=== PATIENT | male | born 1970 | race Caucasian/White ===

== ENCOUNTER 2016-10-07 02:24 | Emergency (ER) | payer OTHER ==
[2016-10-07 02:32] VITALS: TEMP 98.4
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
--- NOTE | 2016-10-07 04:36 | XR ---
EXAM: XR Right Ribs, 2 Views CLINICAL HISTORY: Reason: Pain TECHNIQUE: Frontal and oblique views of the right ribs. COMPARISON: No relevant prior studies available. FINDINGS: PA chest: Heart size and mediastinal structures are within normal limits. Lungs are clear. No evidence of pneumothorax or pleural effusion. Bones/joints: Nondisplaced fractures involve the lateral right eighth and ninth ribs. No other definite rib fractures identified. IMPRESSION: Acute nondisplaced lateral right eighth and ninth rib fractures.
[2016-10-07 04:45] VITALS: BP 122/60; PULSE 80; RESP 16
== END 2016-10-07 05:02 | disposition home or self-care (01) ==
LOC: EC 02:24
DX: S22.41XA Multiple fractures of ribs, right side, initial encounter for closed fracture (principal); S12.8XXA Fracture of other parts of neck, initial encounter; R04.0 Epistaxis; F17.200 Nicotine dependence, unspecified, uncomplicated; Y09 Assault by unspecified means
CPT/HCPCS: 70450; 70486; 99284

== ENCOUNTER 2017-08-27 18:55 | Emergency (ER) | payer OTHER ==
[2017-08-27] MEDS ORDERED: BACITRACIN 500 UNIT/GM OINT 28.4 GM TUBE TOPICAL ONE (19:27)
[2017-08-27] MEDS ORDERED: DIPH,PERTUS(ACELL)TETVAC-LF 0.5 ML VIAL IM ONE (19:27)
[2017-08-27] MEDS ORDERED: PANTOPRAZOLE 40 MG TABLET PO STA (19:27)
[2017-08-27 19:54] LABS: Basophils % (A) 1 %; Eosinophils # (A) 0.2 k/uL (0-0.7); Eosinophils % (A) 3 %; HGB 15.3 gm/dL (13.0-17.5); Lymphocytes # (A) 2.3 k/uL (1.0-4.8); Lymphocytes % (A) 28 %; MCH 32.5 pg (25.0-35.0); MCHC 34.1 g/dL (31.0-37.0); MCV 95.2 fL (80.0-100.0); Mean Platelet Volume 6.7; Monocytes # (A) 0.6 k/uL (0-1.0); Monocytes % (A) 7 %; Neutrophils % (A) 60 %; Platelet Count 218 k/uL (150-450); RBC 4.72 m/uL (4.30-5.90); RDW 14.2 % (11.5-15.5); WBC 8.3 k/uL (3.8-10.6)
[2017-08-27 19:58] LABS: Alcohol <10 mg/dL; Anion Gap 11 mmol/L; Blood Urea Nitrogen 16 mg/dL (9-20); Calcium 9.4 mg/dL (8.4-10.2); Carbon Dioxide 30 mmol/L (22-30); Chloride 99 mmol/L (98-107); Glucose 110 mg/dL (74-99); Sodium 140 mmol/L (137-145)
--- NOTE | 2017-08-27 21:21 | ED ---
General Adult HPI - General Chief complaint: Psychiatric Symptoms Stated complaint: MENTAL HEALTH ETOH Source: patient, police Mode of arrival: ambulatory Limitations: no limitations - History of Present Illness Initial comments: Dictation was produced using [employer] dictation software. please excuse any grammatical, word or spelling errors. Chief Complaint: 46-year-old male past medical history of hypothyroidism presents with suicidal ideation. History of Present Illness: Patient is accompanied by police. Patient has suicidal ideation. He does report having suicidal attempt in the past. He tried to commit suicide today by cutting his wrist. It cut his left forearm and attempted a however states that he "chickened out." Patient has attempted suicide in the past. History. Patient states she's been depressed because feels as though a ravine a lot of bad life choices. The ROS documented in this emergency department record has been reviewed and confirmed by me. Those systems with pertinent positive or negative responses have been documented in the HPI. All other systems are other negative and/or noncontributory. - Related Data Home Medications Medication Instructions Recorded Confirmed Levothyroxine Sodium [Synthroid] 150 mcg PO DAILY 08/27/17 08/27/17 Vitamin B Complex 1 cap PO DAILY 08/27/17 08/27/17 Allergies Allergy/AdvReac Type Severity Reaction Status Date / Time No Known Allergies Allergy Verified 08/27/17 20:25 Review of Systems ROS Statement: Those systems with pertinent positive or pertinent negative responses have been documented in the HPI. ROS Other: All systems not noted in ROS Statement are negative. Past Medical History Additional Past Medical History / Comment(s): hypothyroidism. Hepatitis C. History of Any Multi-Drug Resistant Organisms: None Reported Additional Past Surgical History / Comment(s): wisdom teeth. Past Psychological History: Depression Smoking Status: Current every day smoker Past Alcohol Use History: Occasional Past Drug Use History: Marijuana General Exam - General Exam Comments Initial Comments: PHYSICAL EXAM: General Impression: Alert and oriented x3, not in acute distress HEENT: Normocephalic atraumatic, extra-ocular movements intact, pupils equal and reactive to light bilaterally, mucous membranes moist. Cardiovascular: Heart regular rate and rhythm, S1&S2 audible, no murmurs, rubs or gallops Chest: Lungs clear to auscultation bilaterally, no rhonchi, no wheeze, no rales Abdomen: Bowel sounds present, abdomen soft, non-tender, non-distended, no organomegaly Musculoskeletal: Pulses present and equal in all extremities, no peripheral edema Motor: Power 5/5 bilaterally, no focal deficits noted Neurological: CN II-XII grossly intact, no focal motor or sensory deficits noted Skin: Multiple superficial lacerations to the left anterior forearm. Wound edges approximate well. Active hemorrhage at this time. Psych: Normal affect and mood Limitations: no limitations Course Vital Signs 08/27/17 08/27/17 18:59 20:07 Temperature 97.8 F Pulse Rate 84 Respiratory 18 19 Rate Blood Pressure 134/93 O2 Sat by Pulse 100 Oximetry Medical Decision Making - Medical Decision Making ED course: Sux-rrlo-cra male presents with suicidal ideation with attempt today. Vital signs are stable. Patient is depressed secondary to personal life issues. Patient is accompanied by law enforcement. There is a warrant out for his arrest. Laboratory evaluation obtained showing no acute processes. Tetanus was updated. Patient given bacitracin and wound was dressed. Her dictation for laceration repair at this time. Patient medically cleared. Patient evaluated by EPS nurse and cleared for discharge to enforcement.. The time of this dictation there is pending custody to enforcement. EKG Interpretation: A 12 lead EKG was obtained. It was interpreted by myself and attending physician. There is a P wave before every QRS complex. Rate is 74. Rhythm is sinus rhythm, interval 162, QRS 82, QTC 424. QT is not prolonged. No ST segment depression or elevation. Overall, this EKG is unremarkable - Lab Data Result diagrams: 08/27/17 19:41 08/27/17 19:41 Lab Results 08/27/17 08/27/17 Range/Units 19:41 19:41 WBC 8.3 (3.8-10.6) k/uL RBC 4.72 (4.30-5.90) m/uL Hgb 15.3 (13.0-17.5) gm/dL Hct 45.0 (39.0-53.0) % MCV 95.2 (80.0-100.0) fL MCH 32.5 (25.0-35.0) pg MCHC 34.1 (31.0-37.0) g/dL RDW 14.2 (11.5-15.5) % Plt Count 218 (150-450) k/uL Neutrophils % 60 % Lymphocytes % 28 % Monocytes % 7 % Eosinophils % 3 % Basophils % 1 % Neutrophils # 5.0 (1.3-7.7) k/uL Lymphocytes # 2.3 (1.0-4.8) k/uL Monocytes # 0.6 (0-1.0) k/uL Eosinophils # 0.2 (0-0.7) k/uL Basophils # 0.0 (0-0.2) k/uL Sodium 140 (137-145) mmol/L Potassium 4.0 (3.5-5.1) mmol/L Chloride 99 (98-107) mmol/L Carbon Dioxide 30 (22-30) mmol/L Anion Gap 11 mmol/L BUN 16 (9-20) mg/dL Creatinine 1.16 (0.66-1.25) mg/dL Est GFR (CKD-EPI)AfAm 88 (>60 ml/min/1.73 sqM) Est GFR (CKD-EPI)NonAf 76 (>60 ml/min/1.73 sqM) Glucose 110 H (74-99) mg/dL Calcium 9.4 (8.4-10.2) mg/dL Serum Alcohol <10 mg/dL Disposition Clinical Impression: Suicide attempt Disposition: OTHER INSTITUTION NOT DEFINED Instructions: Depression (ED) Is patient prescribed a controlled substance at d/c from ED?: No Referrals: Nuria Lockhart DO [Primary Care Provider] - 1-2 days Time of Disposition: 21:20 - Out of Hospital Transfer - Req. Specs Out of Hospital Transfer - Requested Specifics: Other Non-Acute (to custody of law enforcement)
[2017-08-27 21:29] VITALS: BP 144/87; PULSE 88; RESP 18; TEMP 97
== END 2017-08-27 21:29 | disposition other institution (70) ==
LOC: EC 18:55
DX: S51.812A Laceration without foreign body of left forearm, initial encounter (principal); F32.9 Major depressive disorder, single episode, unspecified; E03.9 Hypothyroidism, unspecified; F17.200 Nicotine dependence, unspecified, uncomplicated; Z23 Encounter for immunization; Z86.19 Personal history of other infectious and parasitic diseases; Z79.899 Other long term (current) drug therapy; X78.9XXA Intentional self-harm by unspecified sharp object, initial encounter
CPT/HCPCS: 36415; 80048; 80320; 82075; 85025; 90471; 90715; 93005; 99285

== ENCOUNTER → 2018-07-19 | Outpatient (CLI) | payer OTHER ==
--- NOTE | 2018-07-19 14:30 | CT ---
EXAMINATION TYPE: CT chest wo con DATE OF EXAM: 07/19/2018 COMPARISON: CT chest September 18, 2010 HISTORY: Chronic productive cough x [address] DLP: 675 mGycm. Automated Exposure Control for Dose Reduction was Utilized. TECHNIQUE: CT scan of the thorax is performed without IV contrast. FINDINGS: LUNGS: An azygos lobe/fissure is redemonstrated. The lungs are grossly clear, there is no concerning parenchymal mass or nodule identified. There is no pleural effusion or pneumothorax seen. The trac heobronchial tree is patent. MEDIASTINUM: Lack of IV contrast is noted to limit evaluation for mediastinal and especially hilar ad enopathy. There are no definitive greater than 1 cm hilar or mediastinal lymph nodes. No cardiomega ly or pericardial effusion is seen. No coronary artery calcification is noted. OTHER: No additional significant abnormality is seen. IMPRESSION: No acute or chronic pulmonary process identified.
== END | disposition home or self-care (01) ==
LOC: RADCTMAIN 13:31
PROVIDERS: ATTEND Family Medicine
DX: R05 Cough (principal)
CPT/HCPCS: 71250

== ENCOUNTER → 2019-03-31 | Outpatient (CLI) | payer OTHER ==
[2019-03-31 18:34] LABS: Albumin 4.3 g/dL (3.80-4.90); Albumin/Globulin Ratio 1.79 (1.60-3.17); Bilirubin, Conjugated 0.3 mg/dL (0.20-0.40); Bilirubin,Unconjugated 0.5 mg/dL; Globulin 2.4 g/dL (1.6-3.3); Total Bilirubin 0.8 mg/dL (0.2-1.2); Total Protein 6.7 g/dL (6.2-8.2)
== END | disposition home or self-care (01) ==
LOC: LABWHC1 11:32
PROVIDERS: ATTEND Psychiatry & Neurology Psychiatry
DX: B18.2 Chronic viral hepatitis C (principal); Z79.899 Other long term (current) drug therapy
CPT/HCPCS: 36415; 80076; 86803

== ENCOUNTER → 2019-04-20 | Outpatient (CLI) | payer OTHER | END | disposition home or self-care (01) | LOC: LABWHC1 09:24 | PROVIDERS: ATTEND Physician Assistant | DX: B18.2 Chronic viral hepatitis C (principal) | CPT/HCPCS: 36415 ==

== ENCOUNTER → 2019-05-10 | Outpatient (CLI) | payer OTHER ==
--- NOTE | 2019-05-10 11:03 | NM ---
EXAMINATION TYPE: NM stress cardiolite complete DATE OF EXAM: 05/10/2019 COMPARISON: NONE HISTORY: Family history of cardiac disease, chest pain TECHNIQUE: After the intravenous administration of 10.83 mCi Tc 99m Sestamibi - Rest images obtained 45 minutes post injection. The patient exercised using a MIKHAIL protocol and 1 minute prior to peak exercise was injected with 27.6 mCi Tc 99m Sestamibi - Stress images obtained 35 minutes post inject ion. FINDINGS: Targeted heart rate was achieved during performance of the study. Review of stress and rest SPECT jenifer ges demonstrates no convincing perfusion abnormality. Small perfusion defect on stress imaging of the septal wall is seen although this is not in one coronary artery distribution and is seen of the basi lar segment, possibly artifact with normal wall motion. Gated analysis shows normal wall motion with an estimated left ventricular ejection fraction of 52 %. TID is within normal limits measuring 0.95. IMPRESSION: 1. No convincing scintigraphic evidence for reversible ischemia. Small defect in the septal wall on stress imaging is favored to be artifactual as wall motion is normal. 2. Estimated ventricular ejection fraction of 52%.
--- NOTE | 2019-05-10 18:07 | EST ---
EXERCISE STRESS AGE: 48 SEX: Male. HT: 73" WT: 220 pounds PROTOCOL: Cardiolite Carmelo STAGE: 3 DURATION OF EXERCISE: 10:30 HEART RATE REST: 68 BLOOD PRESSURE REST: 106/82 MAXIMUM HEART RATE ACHIEVED: 152 MAXIMUM BLOOD PRESSURE: 153/85 85% MPHR: 146 100% MPHR: 172 METS: 12.1 INDICATIONS: Chest pain. CLINICAL INFORMATION: STRESS DATA: Heart rate 68, pressure 106/32 mmHg. Baseline EKG showed sinus rhythm. The patient exercised on the treadmill according to Carmelo protocol for a total of 10 minutes and achieved 12.1 METS. Max heart rate was 152, which is about 90% of maximum predicted heart rate. Maximum blood pressure was 153/85 mmHg. Clinically the patient developed dizziness and lightheadedness. The EKG did not show any significant ST or T- wave abnormalities concerning for ischemia. CONCLUSION: 1. Excellent exercise tolerance. 2. Normal EKG in response to exercise. 3. Please follow up on the Cardiolite portion on separate report from Radiology Department. MMODL / IJN: [id number] /
== END | disposition home or self-care (01) ==
LOC: RADNMMAIN 08:03
PROVIDERS: ATTEND Family Medicine
DX: Q21.8 Other congenital malformations of cardiac septa (principal); I25.10 Atherosclerotic heart disease of native coronary artery without angina pectoris; Z82.49 Family history of ischemic heart disease and other diseases of the circulatory system
CPT/HCPCS: 93017; 78452; A9500

== ENCOUNTER → 2019-09-01 | Outpatient (CLI) | payer OTHER ==
[2019-09-01 09:09] LABS: Basophils # (A) 0.1 k/uL (0-0.2); Basophils % (A) 1 %; Eosinophils # (A) 0.3 k/uL (0-0.7); Eosinophils % (A) 4 %; HCT 47.5 % (39.0-53.0); HGB 15.6 gm/dL (13.0-17.5); Lymphocytes # (A) 2.4 k/uL (1.0-4.8); Lymphocytes % (A) 29 %; MCH 31.2 pg (25.0-35.0); MCHC 32.8 g/dL (31.0-37.0); MCV 95.3 fL (80.0-100.0); Mean Platelet Volume 7.8; Monocytes # (A) 0.5 k/uL (0-1.0); Monocytes % (A) 6 %; Neutrophils # (A) 4.7 k/uL (1.3-7.7); Neutrophils % (A) 58 %; Platelet Count 198 k/uL (150-450); RBC 4.99 m/uL (4.30-5.90); RDW 13.4 % (11.5-15.5); WBC 8.1 k/uL (3.8-10.6)
[2019-09-01 15:39] LABS: ALT 21 U/L (10-49); AST 25 U/L (14-35); Albumin/Globulin Ratio 1.62 (1.60-3.17); Alkaline Phosphatase 54 U/L (41-126); Bilirubin, Conjugated <0.20 mg/dL (0.20-0.40); Globulin 2.6 g/dL (1.6-3.3); Total Bilirubin 0.5 mg/dL (0.3-1.2); Total Protein 6.8 g/dL (6.2-8.2)
[2019-09-01 15:52] LABS: INR 0.94 (0.90-1.11); Prothrombin Time 10.1 sec (9.9-11.9)
== END | disposition home or self-care (01) ==
LOC: LABWHC1 08:31
PROVIDERS: ATTEND Physician Assistant
DX: B18.2 Chronic viral hepatitis C (principal)
CPT/HCPCS: 36415; 80076; 85025; 85610; 87522

== ENCOUNTER → 2024-02-14 | Outpatient (CLI) | payer OTHER ==
[2024-02-14 14:00] VITALS: BP 130/87; PULSE 73; RESP 20; TEMP 97.5
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
== END ==
LOC: 3 N SLEEP 13:19
PROVIDERS: ATTEND Internal Medicine
DX: G47.33 Obstructive sleep apnea (adult) (pediatric) (principal); G47.10 Hypersomnia, unspecified; M19.90 Unspecified osteoarthritis, unspecified site; F32.A Depression, unspecified; K21.9 Gastro-esophageal reflux disease without esophagitis; B19.20 Unspecified viral hepatitis C without hepatic coma; F17.200 Nicotine dependence, unspecified, uncomplicated; Z98.890 Other specified postprocedural states; Z87.828 Personal history of other (healed) physical injury and trauma
CPT/HCPCS: 99211

== ENCOUNTER → 2024-02-25 | Outpatient (CLI) | payer OTHER ==
[2024-02-25 15:42] LABS: Blood Urea Nitrogen 15.6 mg/dL (9.0-27.0); Calcium 9.7 mg/dL (8.7-10.3); Carbon Dioxide 28.1 mmol/L (21.6-31.8); Chloride 105 mmol/L (96-109); Glucose 66 mg/dL (70-110); INR 0.98 sec (0.93-1.11); Potassium 4.7 mmol/L (3.5-5.5); Prothrombin Time 11.2 sec (9.9-11.9); Sodium 142 mmol/L (135-145)
[2024-02-25 15:47] LABS: Basophils # (A) 0.03 X 10*3/uL (0.00-0.10); Basophils % (A) 0.5 %; Eosinophils # (A) 0.21 X 10*3/uL (0.04-0.35); Eosinophils % (A) 3.2 %; HGB 14.5 g/dL (13.0-17.0); Lymphocytes # (A) 1.94 X 10*3/uL (0.90-5.00); Lymphocytes % (A) 29.6 %; MCH 30.1 pg (27.0-32.0); MCV 91.3 FL (80.0-97.0); Mean Platelet Volume 10.4 FL (9.5-12.2); Monocytes # (A) 0.78 X 10*3/uL (0.20-1.00); Monocytes % (A) 11.9 %; NRBC Per 100 WBC 0 X 10*3/uL (0.00-0.01); Neutrophils # (A) 3.57 X 10*3/uL (1.80-7.70); Neutrophils % (A) 54.5 %; Platelet Count 235 X 10*3/uL (140-440); RBC 4.82 X 10*6/uL (4.40-5.60); RDW 12.9 % (11.5-14.5); WBC 6.55 X 10*3/uL (4.50-10.00)
== END | disposition home or self-care (01) ==
LOC: LABPAT 11:50
PROVIDERS: ATTEND Orthopaedic Surgery
DX: M16.11 Unilateral primary osteoarthritis, right hip (principal); Z22.322 Carrier or suspected carrier of Methicillin resistant Staphylococcus aureus
CPT/HCPCS: 80048; 85025; 85610; 87070

== ENCOUNTER → 2024-03-16 | Outpatient (CLI) | payer OTHER ==
--- NOTE | 2024-03-16 13:23 | CTL ---
EXAMINATION TYPE: CT Low Dose Lung DATE OF EXAM: 03/16/2024 1:05 PM COMPARISON: 07/19/2018r SCREENING VISIT: Subsequent CT DIAGNOSTIC QUALITY: Satisfactory CLINICAL INDICATION: Male, 53 years old with history of Z12.2 ENCNTR SCREEN FOR MALIGNANT NEOPLASM OF RESP, Personal hx nicotine dependence current smoker, 1 ppd x 20 years. c/o chronic cough., Lung can cer screening, History of tobacco use. TECHNIQUE: Low dose computed tomography scan was performed through the chest at 1 mm thick sections a nd reconstructed images in the coronal plane at 1 mm thick sections. Contrast used: mL of , (none if empty) Oral contrast used: (none if empty) CT DLP: 151.1 mGycm, Automated exposure control for dose reduction was used. CT CTDI: 3.9 mGy, Automated exposure control for dose reduction was used. FINDINGS: LUNG NODULES: None. LUNGS: COPD: Severity: None Fibrosis: Severity: None Lymph nodes: None Other findings: None RIGHT PLEURAL SPACE: Effusion: None Calcification: None Thickening: None Pneumothorax: None LEFT PLEURAL SPACE: Effusion: None Calcification: None Thickening: None Pneumothorax: None HEART: Other: Ascending thoracic aorta at the level the main pulmonary artery measures 4.2 cm. The main pul monary artery at the bifurcation measures3.1 cm. Heart Size: Normal Coronary calcification: Minimal Pericardial effusion: None OTHER FINDINGS: Upper abdomen: Normal Bony thorax: Normal Supraclavicular region: Normal IMPRESSION: 1. No suspicious changes for primary or metastatic neoplasm. 2. Ascending thoracic aortic aneurysm of 4.[address] CHEST RECOMMENDATION: Follow-up low-dose CT chest one year CT LUNG RAD: Lung-Rad 2 Benign Appearance or Behavior [facility], , 03/16/2024 1:21 PM
== END | disposition home or self-care (01) ==
LOC: RADCTMAIN 12:35
PROVIDERS: ATTEND Family Medicine
DX: Z12.2 Encounter for screening for malignant neoplasm of respiratory organs (principal); F17.210 Nicotine dependence, cigarettes, uncomplicated; I71.21 Aneurysm of the ascending aorta, without rupture
CPT/HCPCS: 71271

== ENCOUNTER 2024-03-20 19:43 | Outpatient (CLI) | payer OTHER ==
--- NOTE | 2024-03-22 14:39 | P.PCN ---
Description of Procedure: POLYSOMNOGRAPHY REPORT PROCEDURE(S)/DATE(S): Polysomnography 03/20/2024 CLINICAL: Patient has been seen in the sleep center for evaluation of obstructive sleep apnea-hypopnea syndrome. Please see my consultation. Sleep study has been done for evaluation of patient breathing during the sleep. PROCEDURE: The standard montage for clinical polysomnography included the electroencephalogram, the electrooculogram, the mentalis surface electromyography and Lead II cardiography. The respiratory battery consisted of measurements of nasal/buccal air flow, pressure transducer measurements from nose, thoracic and/or abdominal effort and intercostal surface electromyography. Video monitoring has been done to check for any parasomnia events. Nocturnal oxyhemoglobin saturations were obtained by finger oximetry. Step-salinas titration with positive airway pressure was utilized to control the respiratory events, if necessary. RESULTS: During the diagnostic sleep study sleep efficiency was decreased to 68.0%. Latency to sleep onset was prolonged to 51.0 min. Sleep architecture showed stage NI was increased to 13.1%, Delta sleep was absent 0%, REM sleep was decreased to 10.1%. Respiratory channel showed 1 obstructive apneas, 3 mixed apneas, 2 central apneas, 108 hypopneas with lowest oxygen level 76%. Total apnea hypopnea index was 26.7. Heart rate was in the range between 62 and 72, average 67. EMG showed 0 periodic limb movements per hour. IMPRESSIONS: 1. Moderate obstructive sleep apnea hypopnea syndrome. 2. No significant periodic limb movements have been documented. Please see other impressions from consultation PLAN: 1. The patient will have PAP titration for correction of respiratory abnormalities during the sleep. 2. Losing weight. 3. Sleep hygiene with regular time in bed for at least 7-1/2 hours. 4. No driving if feeling sleepiness. Thank you very much for allowing me to participate in the management of your patient. Sincerely, Grupo Alonzo MD, PhD, FAASM. Diplomat of [place] [employer], Sleep Medicine Board by [place] [employer] Analysis Specialist of [facility] [place] cc: Daksha Keane MD
== END 2024-03-21 08:00 | disposition home or self-care (01) ==
LOC: 3 N SLEEP 19:43
PROVIDERS: ATTEND Internal Medicine
DX: G47.33 Obstructive sleep apnea (adult) (pediatric) (principal); F17.210 Nicotine dependence, cigarettes, uncomplicated
CPT/HCPCS: 95810

== ENCOUNTER → 2024-03-27 | Outpatient (CLI) | payer OTHER | END | disposition home or self-care (01) | LOC: LABPAT 12:23 | PROVIDERS: ATTEND Orthopaedic Surgery | DX: Z01.812 Encounter for preprocedural laboratory examination (principal) | CPT/HCPCS: 86850; 86900; 86901 ==

== ENCOUNTER → 2024-05-03 | Outpatient (CLI) | payer OTHER ==
[2024-05-03 15:01] LABS: Blood Urea Nitrogen 11.8 mg/dL (9.0-27.0); Calcium 9.9 mg/dL (8.7-10.3); Carbon Dioxide 27.8 mmol/L (21.6-31.8); Chloride 104 mmol/L (96-109); Glucose 72 mg/dL (70-110); Potassium 4.7 mmol/L (3.5-5.5); Sodium 140 mmol/L (135-145)
[2024-05-03 15:14] LABS: Basophils # (A) 0.04 X 10*3/uL (0.00-0.10); Basophils % (A) 0.6 %; Eosinophils # (A) 0.21 X 10*3/uL (0.04-0.35); Eosinophils % (A) 3.3 %; HCT 46.4 % (39.6-50.0); HGB 15.3 g/dL (13.0-17.0); Lymphocytes # (A) 2.25 X 10*3/uL (0.90-5.00); Lymphocytes % (A) 35.3 %; MCH 30.1 pg (27.0-32.0); MCV 91.3 FL (80.0-97.0); Mean Platelet Volume 10.6 FL (9.5-12.2); Monocytes # (A) 0.65 X 10*3/uL (0.20-1.00); Monocytes % (A) 10.2 %; NRBC Per 100 WBC 0 X 10*3/uL (0.00-0.01); Neutrophils % (A) 50.3 %; Platelet Count 250 X 10*3/uL (140-440); RBC 5.08 X 10*6/uL (4.40-5.60); RDW 13.2 % (11.5-14.5); WBC 6.37 X 10*3/uL (4.50-10.00)
== END | disposition home or self-care (01) ==
LOC: LABPAT 11:08
PROVIDERS: ATTEND Orthopaedic Surgery
DX: Z01.812 Encounter for preprocedural laboratory examination (principal); M16.11 Unilateral primary osteoarthritis, right hip
CPT/HCPCS: 80048; 85025; 86850; 86900; 86901

== ENCOUNTER 2024-05-08 19:38 | Outpatient (CLI) | payer OTHER ==
--- NOTE | 2024-05-11 12:33 | P.PCN ---
Description of Procedure: CLINICAL: Titration with positive air pressure has been done for correction of respiratory abnormalities during sleep. DESCRIPTION OF PROCEDURE: The standard montage for clinical polysomnography included the electroencephalogram, the electrocardiogram, the mentalis surface electromyography and Lead II cardiography. The respiratory battery consisted of measurements of nasal /buccal air flow, pressure transducer measurements from the nose, thoracic and /or abdominal effort and intercostal surface electromyography. Video monitoring has been done to check for any parasomnia events. Nocturnal oxyhemoglobin saturations were obtained by finger oximetry. Step-salinas titration with positive airway pressure was utilized to control respiratory events. Raw data of sleep recording has been reviewed and is adequate. RESULTS: Sleep efficiency was significantly decreased to 60.9%. Latency to sleep onset was significantly prolonged to 50.0 minutes.]. Sleep architecture showed stage N1 was normal 6.4%, Delta sleep was absent 0%, REM sleep was increased to 32.3%. Heart rate was minimum 49 BPM, maximum 64 BPM, average 57 BPM. EMG showed 18.1 periodic limb movements per hour with 0.3 micriarousals per hour. PAP titration have been done with CPAP up to the pressure 13 cm H2O. The best results were at the pressure 11 cm H2O. Apnea hypopnea index reduced to 7.4. IMPRESSION: 1. Obstructive sleep apnea hypopnea syndrome improved with PAP treatment. 2. Periodic limb movements have been documented. Please see other impressions from consultation. PLAN: 1. The patient will have treatment with positive air pressure equipment with the level of pressure AutoPap 6-15 cm H2O and should use it every night for the whole night. 2. Watching weight. 3. Sleep hygiene with regular time in bed for at least 8 hours. 4. No driving if feeling any sleepiness. 5. I will see the patient for follow up visit to explain the results of the jese t, recommendations, check compliance with treatment and make any necessary adjustment related to mask fitting, pressure and humidification. 6. Please check iron profile including ferritin level. Low level of iron may increase risk for periodic limb movements Thank you very much for allowing me to participate in the management of your patient. Sincerely, Grupo Alonzo MD, PhD, FAASM Diplomat of [place] [employer] Sleep Medicine Board of [place] [employer] Service Delivery Manager of [facility] [place] cc: Calvin Mendosa III, MD
== END 2024-05-09 06:00 | disposition home or self-care (01) ==
LOC: 3 N SLEEP 19:38
PROVIDERS: ATTEND Internal Medicine
DX: G47.33 Obstructive sleep apnea (adult) (pediatric) (principal); G47.61 Periodic limb movement disorder; F17.210 Nicotine dependence, cigarettes, uncomplicated; Z99.89 Dependence on other enabling machines and devices
CPT/HCPCS: 95811

== ENCOUNTER 2024-05-12 06:37 | Day surgery (SDC) | payer OTHER ==
--- NOTE | 2024-05-11 08:22 | P.HPOR ---
History of Present Illness H&P Date: 05/11/24 Chief Complaint: Right hip pain The patient is a 53-year-old male who presents with progressive right hip pain for the past 6 months. He is having pain with any weightbearing activities. He is having nighttime symptoms. He tried medications without much relief. He notes he has been limping. Review of Systems Per HPI Past Medical History Past Medical History: GERD/Reflux, Osteoarthritis (OA), Sleep Apnea/CPAP/BIPAP, Thyroid Disorder Additional Past Medical History / Comment(s): hypothyroidism. Hepatitis C-had treatment & is cured, saw Dr Brown recently regarding thoracic aneurysm-being monitored for now, hx. herpes, hx. syphilus, no active lesions, has hiatal hernia, in recovery for alcohol & drug abuse, gets tested every [address], just had sleep study-doesn't have CPAP yet History of Any Multi-Drug Resistant Organisms: None Reported Past Surgical History: Hernia Repair Additional Past Surgical History / Comment(s): wisdom teeth., jaw surg. due to fx.-has plate & screws, colonoscopy, right cataract removed Past Anesthesia/Blood Transfusion Reactions: No Reported Reaction Additional Past Anesthesia/Blood Transfusion Reaction / Comment(s): no issues opening jaw since surg. Smoking Status: Current every day smoker - Past Family History Mother Family Medical History: Cancer, Hyperlipidemia, Sleep Apnea/CPAP/BIPAP Additional Family Medical History / Comment(s): LUNG CANCER, HIGH TRIGLYERIDES, PART OF LUNG REMOVED, Brother(s) Family Medical History: Asthma, Myocardial Infarction ([place]) Medications and Allergies Home Medications Medication Instructions Recorded Confirmed Type Levothyroxine Sodium [Synthroid] 200 mcg PO DAILY 08/27/17 05/09/24 History Albuterol Inhaler [Ventolin Hfa 1 - 2 puff INHALATION Q6H PRN 03/30/24 05/09/24 History Inhaler] Fluticasone Nasal [place] [Flonase 2 spray EA NOSTRIL DAILY 03/30/24 05/09/24 History Nasal [place]] Losartan [Cozaar] 25 mg PO DAILY 03/30/24 05/09/24 History Omeprazole 40 mg PO DAILY PRN 03/30/24 05/09/24 History Arginine [l-Arginine] 500 mg PO DAILY 03/31/24 05/09/24 History Ascorbic Acid [Vitamin C] 500 mg PO DAILY 03/31/24 05/09/24 History Cholecalciferol [Vitamin D3 (125 125 mcg PO DAILY 03/31/24 05/09/24 History Mcg = 5000 Iu)] Glucosa Nicole 2Kcl/Chondroitin Nicole 1 each PO DAILY 03/31/24 05/09/24 History [Glucosamine-Chondroitin Cap] Ibuprofen [Motrin] 600 mg PO Q6HR PRN 03/31/24 05/09/24 History K2/Mk7 1 tab PO DAILY 03/31/24 05/09/24 History L.acidoph,Paracasei, B.lactis 1 each PO DAILY 03/31/24 05/09/24 History [Probiotic] Ubidecarenone [Co Q-10] 100 mg PO DAILY 03/31/24 05/09/24 History Acyclovir [Zovirax] 800 mg PO BID 05/09/24 05/09/24 History Aspirin 81 mg PO DAILY 05/09/24 05/09/24 History Allergies Allergy/AdvReac Type Severity Reaction Status Date / Time No Known Allergies Allergy Verified 05/09/24 12:39 Physical Examination - Hip right Gait: antalgic Tenderness with palpation: anterior Pain with motion: internal rotation and hip flexion ROM: flexion: 70 degrees ROM: internal rotation: 0 degrees ROM: external rotation: 50 degrees Crepitus with motion: Yes Strength: extension: 5/5 Strength: flexion: 5/5 Strength: abduction: 5/5 Tests: impingement tests: positive Results The patient is a well-developed well-nourished male approximately 6 foot tall, 210 pounds of endomorphic habitus. HEENT exam is nonfocal, neck is supple. He has painful passive motion of the right hip. Straight leg raise is negative. He does have shortening the right lower extremity compared to left. His distal neurovascular exam appears intact in the right lower extremity. - Diagnostic results Hip x-ray: image reviewed (X-rays of the right hip obtained the office show severe osteoarthrosis with subchondral cystic changes and subchondral sclerosis. [id number] changes are noted.) Assessment and Plan Assessment: Right hip severe osteoarthrosis History of alcohol abuse Hepatitis C Plan: I talked to the patient at length regarding his condition along with treatment options. At this point he is quite symptomatic having pain and stiffness related to his right hip osteoarthrosis despite attempted conservative measures. After a thorough discussion he opts to proceed with surgery. We will plan to proceed with a right total hip arthroplasty utilizing an anterior approach. Risks and benefits were discussed at length in layman's terms. We will institute DVT prophylaxis postoperatively.
[~2024-05-12 06:37] MED LIST: LIDOCAINE 1% (10MG/ML) FOR IV START INTRADERMA PRN; TRANEXAMIC 1,000 MG/100ML-NACL 1,000 MG in SALINE 1 100ML.BAG IVPB PRN; fentaNYL (PF) 50 MCG/ML 2 ML AMP IVP PRN
[2024-05-12] MEDS: ACETAMINOPHEN TAB 500 MG TAB PO PRN (07:08)
[2024-05-12] MEDS: MELOXICAM 7.5 MG TAB PO PRN (07:09)
[2024-05-12] MEDS: DEXAMETHASONE SOD PHOSPHATE 4 MG/ML 1 ML VIAL IV ONE (07:21)
[2024-05-12] MEDS: ONDANSETRON 4 MG/2 ML VIAL IVP ONE (07:21)
[2024-05-12] MEDS: LACTATED RINGERS 1,000 ML IV SCH (07:22)
[2024-05-12] MEDS: MIDAZOLAM 2 MG/2 ML VIAL IV PRN (07:25)
[2024-05-12 07:31] LABS: Prothrombin Time 10.8 sec (10.0-12.5)
[2024-05-12] MEDS: IV FLUID CONTINUATION 1,000 ML IV ONE (07:36)
[2024-05-12] MEDS ORDERED: DEXAMETHASONE SOD PHOSPHATE 4 MG/ML 1 ML VIAL ONE (08:45)
[2024-05-12] MEDS ORDERED: ROPIVACAINE 5 MG/ML 30 ML VIAL ONE (08:45)
[2024-05-12] MEDS ORDERED: MIDAZOLAM 2 MG/2 ML VIAL ONE (08:45)
[2024-05-12] MEDS ORDERED: PROPOFOL 10 MG/ML 20 ML VIAL IV ONE (08:45)
[2024-05-12] MEDS ORDERED: TRANEXAMIC 1,000 MG/100ML-NACL PREMIX BAG ONE (08:45)
[2024-05-12] MEDS: ceFAZolin 1,000 MG in SODIUM CHLORIDE 0.9% 1,000 ML IRRIGATION ONE (09:20)
[2024-05-12] MEDS: LACTATED RINGERS 1,000 ML IV ONE (09:48)
--- NOTE | 2024-05-12 10:47 | P.OP ---
Date of Procedure: 05/12/24 Preoperative Diagnosis: Right hip severe osteoarthrosis Postoperative Diagnosis: Same Procedure(s) Performed: Right total hip arthroplastyanterior approachpress-fit Implants: DePuy Corail size 12-135 degree standard offset collared femoral stem, 58 mm [place] acetabular shell with neutral polyethylene liner, 36+1.5 cobalt chrome femoral head. Anesthesia: spinal Surgeon: Aleksandar Kirkland Chemical Processing Technician #1: River Gomez Estimated Blood Loss (ml): 150 Pathology: none sent Condition: stable Disposition: PACU Indications for Procedure: The patient is a 53-year-old male who presents with progressive right hip pain secondary to osteoarthrosis despite conservative measures. A discussion of the risks and benefits of operative intervention versus continued conservative measures was made with the patient. He opted to proceed with surgery. Operative risks include infection, neurovascular injury, development of blood clots, fracture, possible instability, possible leg length discrepancy, possible component loosening/failure and possible need for subsequent procedures was discussed. Informed consent was obtained. Operative Findings: As below Description of Procedure: The patient was brought to the operating room, and after induction of spinal anesthesia was placed supine on the Jo-Ann table. Positioning was checked with fluoroscopy. The right hip was then prepped and draped in a normal fashion. A 12 cm incision was then made starting 2 fingerbreadths distal and 3 finger breaths posterior to the ASIS in line with the proximal femur. The skin was incised sharply. Subcutaneous tissues were divided sharply. Electrocautery was used for hemostasis. The fascia was split in line with skin incision. The interval between the sartorius and tensor fascia delmer was then bluntly developed. The posterior fascia was opened with electrocautery. The lateral circumflex vessels were identified and cauterized prior to sectioning. A retractor was placed along the superior femoral neck as well as the anterior acetabular rim. A wide capsulotomy was performed. The neck cut was then made at a 45 angle to the shaft approximately 1 1/2 cm above the level of the lesser trochanter. The head was extracted. Attention was then paid towards preparing the acetabular. Anterior and posterior retractors were placed. The remaining capsular labral tissue sharply debrided clearly defining the acetabular margins. I began reaming with a 53 mm reamer taking care to initially medialize then reaming at 45 of abduction and 20 of anteversion. Sequential reaming is performed up to 57 mm. A trial 58 mm acetabular shell was inserted in the same orientation and was fully seated. There was good rim fit and stability. Positioning was checked with fluoroscopy. The final 58 mm acetabular shell was inserted again at 45 of abduction and 20 of anteversion. This was fully seated. There was good rim fit and stability. Again fluoroscopy was used to check the adequacy of placement. A neutral polyethylene liner was gently impacted. Care was taken to avoid any soft tissue interposition. Pulsatile lavage was utilized. Attention was then paid towards preparing the proximal femur. The central region was cleared of soft tissue. A canal finder was used to find the femoral canal. Sequential broaching was performed up to size 12 taking care to lateralize proximally. A calcar mill was used to fashion the medial calcar. There was good rotational stability. A standard neck along with a 36 mm +1.5 head was placed. The hip was gently reduced. Fluoroscopy was used to check the adequacy of positioning along with leg lengths. I felt both were good. The hip was gently dislocated. The trial components were removed. The final size 12 collared standard press-fit femoral stem was inserted parallel to the posterior cortex. This was fully seated and there was good rotational stability. A 36 mm +1.5 cobalt chrome femoral head was placed. This was gently impacted. The hip was then gently reduced. Final fluoroscopic view showed adequate placement implant along with religion of leg length. Stability was checked with 80 of external rotation and 60 of extension of the right hip. The wound was irrigated with sterile lavage. The fascia was closed with running 0 Vicryl suture. There was minimal drainage therefore a deep drain was not placed. The second dose of IV TXA was given. The subcutaneous tissues were reapproximated interrupted 2-0 Vicryl sutures. The skin was reapproximated with 3-0 subcuticular strata fix suture. Skin ta pe and adhesive was applied. A sterile dressing was applied. The patient was then awoken from sedation and transferred to recovery room in good condition. Blood loss was estimated at 150 mL. No complications were incurred. Sponge and needle counts were correct at the end of the case. River HOLLOWAY assisted during the major components is case to include exposure, bone resection, implantation, and closure.
--- NOTE | 2024-05-12 10:49 | XR ---
EXAMINATION TYPE: XR Hip Limited RT, FL guidance operating room DATE OF EXAM: 05/12/2024 10:25 AM COMPARISON: None. CLINICAL INDICATION: Male, 53 years old with history of RIGHT ANTERIOR HIP, Postoperative evaluation TECHNIQUE: XR Hip Limited RT, FL guidance operating room views were obtained FINDINGS: Noted are changes of total hip arthroplasty with femoral and acetabular components appearing well sea mima. Alignment is anatomic. Postsurgical soft tissue changes are evident. IMPRESSION: Satisfactory postoperative alignment [facility], , 05/12/2024 10:47 AM
[2024-05-12] MEDS ORDERED: HYDROcodone/APAP 5-325MG 1 EACH TAB PO PRN (10:52)
[2024-05-12] MEDS ORDERED: NALOXONE 0.4 MG/ML 1 ML VIAL IV PRN (10:52)
[2024-05-12] MEDS: HYDROmorphone 0.5 MG/0.5 ML SYRINGE IVP PRN ×2 (11:01→17:38)
--- NOTE | 2024-05-12 11:22 | XR ---
EXAMINATION TYPE: XR Hip Limited RT DATE OF EXAM: 05/12/2024 11:16 AM COMPARISON: None. CLINICAL INDICATION: Male, 53 years old with history of s/p RTHA, Postoperative evaluation TECHNIQUE: XR Hip Limited RT views were obtained FINDINGS: Noted are changes of total hip arthroplasty with femoral and acetabular components appearing well sea mima. Alignment is anatomic. Postsurgical soft tissue changes are evident. IMPRESSION: Satisfactory postoperative alignment [facility], , 05/12/2024 11:19 AM
--- NOTE | 2024-05-12 20:21 | P.CONS ---
History of Present Illness - Reason for Consult Consult date: 05/12/24 Medical management - History of Present Illness The patient is a 53-year-old male with a history of hypertension, hypothyroidism, thoracic aortic aneursym, who presented for an elective right hip arthroplasty with Dr. Kirkland. Hospitalist service consulted for medical management.He underwent an uneventful surgery this afternoon, and was evaluated afterwards. He is relatively healthy, recently underwent a cardiac work up due to concern for calcifications in his aorta, but he states everything turned out fine and he was cleared for surgery. Currently denies chest pain, SOB. He is a smoker, and has recently cut down to a few cigarettes daily, down from a pack a day. He does not consume alcohol anymore No recreational drug use reported, but does have a remote history of alcohol and drug use, for which he gets tested every 3-4 months. Pertinent positives and negatives as discussed in HPI, a complete review of systems was performed and all other systems are negative. Patient seen and examined at bedside. Vital signs reviewed General: nontoxic, no distress, appears at stated age Derm: warm, dry Head: atraumatic, normocephalic, symmetric Eyes: EOMI, no lid lag, anicteric sclera, pupils equal round reactive to light ENT: Nose and ears atraumatic Neck: No thyromegaly, supple Mouth: no lip lesion, mucus membranes moist Cardiovascular: S1S2 reg, no murmur, no edema Lungs: clear to auscultation bilateral, no rhonchi, no rales, no wheeze, no accessory muscle use Abdominal: soft, nontender to palpation, no guarding, no appreciable organomegaly Ext: R hip dressing noted, no bleeding, erythema noted Neuro: CN II-XII grossly intact Psych: Alert, oriented, appropriate affect Assessment/Plan: Right hip arthritis s/p arthoplasty (05/12) with Orthopedic surgery (Dr. Kikrland) -Continue pain management per Elbert Mckinnon intiated post op for DVT prophylaxis -PT/OT evauations pending -Encouraged incentive spirometry - CBC in the AM Hypotension, post operative: Improving, Likely a combination of sedation/pain medication. Continue IV fluids. Check CBC in the AM HTN: Hold home Losartan for low BP. Hypothyroidism: Continue home levothyroxine Chronic conditions: Thoracic aortic aneurysm: stable per patient History of hepatitis C infection, previously treated JOSE ANGEL: CPAP as needed H/O alcohol/drug abuse: Currently gets tested every 3 months. HSV, no current sores The patient is admitted with an anticipated greater than 2 midnight stay as inpatient status for the evaluation of hip pain s/p arthoplasty Surrogate decision-maker: CODE STATUS:FULL CODE DVT prophylaxis: Xarelto A total of 30 minutes was spent on the care of this complex patient more than 50% of the time was spent in counseling and care coordination.. Past Medical History Past Medical History: GERD/Reflux, Osteoarthritis (OA), Sleep Apnea/CPAP/BIPAP, Thyroid Disorder Additional Past Medical History / Comment(s): hypothyroidism. Hepatitis C-had treatment & is cured, saw Dr Brown recently regarding thoracic aneurysm-being monitored for now, hx. herpes, hx. syphilus, no active lesions, has hiatal hernia, in recovery for alcohol & drug abuse, gets tested every [address], just had sleep study-doesn't have CPAP yet History of Any Multi-Drug Resistant Organisms: None Reported Past Surgical History: Hernia Repair Additional Past Surgical History / Comment(s): wisdom teeth., jaw surg. due to fx.-has plate & screws, colonoscopy, right cataract removed Past Anesthesia/Blood Transfusion Reactions: No Reported Reaction Additional Past Anesthesia/Blood Transfusion Reaction / Comm: no issues opening jaw since surg. Past Psychological History: Anxiety, Depression Additional Psychological History / Comment(s): very anxious about surgery Smoking Status: Current every day smoker Past Alcohol Use History: Abuse Additional Past Alcohol Use History / Comment(s): quit drinking 4 months ago, 1ppd down to <1/2ppd, smoked since teens Past Drug Use History: Cocaine, Marijuana Additional Drug Use History / Comment(s): hx. crack cocaine & marijuana abuse- has been clean for 4 months - Past Family History Mother Family Medical History: Cancer, Hyperlipidemia, Sleep Apnea/CPAP/BIPAP Additional Family Medical History / Comment(s): LUNG CANCER, HIGH TRIGLYERIDES, PART OF LUNG REMOVED, Brother(s) Family Medical History: Asthma, Myocardial Infarction ([place]) Medications and Allergies Home Medications Medication Instructions Recorded Confirmed Type Levothyroxine Sodium [Synthroid] 200 mcg PO DAILY 08/27/17 05/12/24 History Albuterol Inhaler [Ventolin Hfa 1 - 2 puff INHALATION Q6H PRN 03/30/24 05/12/24 History Inhaler] Fluticasone Nasal [place] [Flonase 2 spray EA NOSTRIL DAILY 03/30/24 05/12/24 History Nasal [place]] Losartan [Cozaar] 25 mg PO DAILY 03/30/24 05/12/24 History Omeprazole 40 mg PO DAILY PRN 03/30/24 05/12/24 History Arginine [l-Arginine] 500 mg PO DAILY 03/31/24 05/09/24 History Ascorbic Acid [Vitamin C] 500 mg PO DAILY 03/31/24 05/09/24 History Cholecalciferol [Vitamin D3 (125 125 mcg PO DAILY 03/31/24 05/09/24 History Mcg = 5000 Iu)] Glucosa Nicole 2Kcl/Chondroitin Nicole 1 each PO DAILY 03/31/24 05/09/24 History [Glucosamine-Chondroitin Cap] Ibuprofen [Motrin] 600 mg PO Q6HR PRN 03/31/24 05/12/24 History K2/Mk7 1 tab PO DAILY 03/31/24 05/09/24 History L.acidoph,Paracasei, B.lactis 1 each PO DAILY 03/31/24 05/12/24 History [Probiotic] Ubidecarenone [Co Q-10] 100 mg PO DAILY 03/31/24 05/09/24 History Acyclovir [Zovirax] 800 mg PO BID 05/09/24 05/12/24 History Aspirin 81 mg PO DAILY 05/09/24 05/09/24 History Allergies Allergy/AdvReac Type Severity Reaction Status Date / Time No Known Allergies Allergy Verified 05/12/24 06:56 Physical Exam Vitals: Vital Signs Temp Pulse Resp BP Pulse Ox 05/12/24 14:00 98.6 F 64 18 109/75 97 05/12/24 12:40 59 L 16 99/62 100 05/12/24 12:10 61 16 97/46 96 05/12/24 11:56 47 L 18 95/58 100 05/12/24 11:41 49 L 18 94/65 99 05/12/24 11:26 50 L 18 93/60 99 05/12/24 11:11 53 L 18 95/68 100 05/12/24 10:56 65 18 112/68 100 05/12/24 10:41 96.8 F L 69 18 108/70 97 05/12/24 07:35 62 16 107/65 97 05/12/24 06:55 97.2 F L 58 L 18 118/74 98 Intake and Output 05/12/24 05/12/24 05/12/24 06:59 14:59 22:59 Intake Total 1901 Output Total 50 Balance 1851 Intake: IV 190 Output: Estimated Blood Loss 50 Other: # Voids 1 Weight 104.7 kg 104.7 kg
[2024-05-12] MEDS: HYDROcodone/APAP 7.5-325MG 1 EACH TAB PO PRN (20:57)
[2024-05-12] MEDS: SENNOSIDES-DOCUSATE SODIUM 1 EACH TAB PO SCH (20:57)
[2024-05-13] MEDS: LEVOTHYROXINE 100 MCG TAB PO SCH (06:41)
[2024-05-13 09:52] LABS: Basophils # (A) 0.02 X 10*3/uL (0.00-0.10); Basophils % (A) 0.2 %; Eosinophils # (A) 0.03 X 10*3/uL (0.04-0.35); Eosinophils % (A) 0.2 %; HCT 37.7 % (39.6-50.0); HGB 12.4 g/dL (13.0-17.0); Lymphocytes # (A) 2.19 X 10*3/uL (0.90-5.00); Lymphocytes % (A) 16.6 %; MCH 30.2 pg (27.0-32.0); MCHC 32.9 g/dL (32.0-37.0); Mean Platelet Volume 10.9 FL (9.5-12.2); Monocytes # (A) 1.36 X 10*3/uL (0.20-1.00); Monocytes % (A) 10.3 %; NRBC Per 100 WBC 0 X 10*3/uL (0.00-0.01); Neutrophils % (A) 72.5 %; Platelet Count 212 X 10*3/uL (140-440); RDW 13.3 % (11.5-14.5); WBC 13.23 X 10*3/uL (4.50-10.00)
[2024-05-13] MEDS: RIVAROXABAN 10 MG TAB PO SCH (09:54)
[2024-05-13] MEDS: HYDROmorphone 1 MG/ML 1 ML SYRINGE IVP PRN (10:01)
[2024-05-13] MEDS: MAGNESIUM HYDROXIDE 2,400 MG/30 ML CUP PO PRN (10:09)
--- NOTE | 2024-05-13 13:45 | P.PN ---
Subjective Progress Note Date: 05/13/24 Principal diagnosis: Status post direct anterior right total hip arthroplasty Patient was examined today at bedside, he is up resting in his hospital chair. Pain is well-controlled. Patient did get dizzy while ambulating with physical therapy, they did not utilize stairs. Patient notes he has multiple stairs at home. Patient has been urinating with no issues since surgery. He denies headaches, lightheadedness, chest pain or shortness of breath Objective - Vital Signs Vital signs: Vital Signs Temp 97.4 F L 05/13/24 01:30 Pulse 59 L 05/13/24 06:55 Resp 18 05/13/24 06:55 BP 107/65 05/13/24 06:55 Pulse Ox 98 05/13/24 06:55 FiO2 Intake & Output 05/12/24 05/13/24 05/13/24 18:59 06:59 18:59 Intake Total 1901 Output Total 50 3100 Balance 1851 -3100 Weight 104.7 kg Intake: IV 1901 Output: Urine 3100 Straight 700 Estimated Blood Loss 50 Other: Voiding Method Urinal Toilet # Voids 1 1 - Exam Right lower extremity: Incision is clean, dry, and intact. The exofin fusion tape is in good condition. There is minimal soft tissue swelling and ecchymosis surrounding the medial and lateral aspects of the incision. Calf is soft, no tenderness with palpation. Plantar flexion, dorsiflexion, EHL, FHL are intact. Sensory exam to light touch throughout the extremity is intact, dorsal pedis pulses 2+. - Labs CBC & Chem 7: 05/13/24 04:39 Labs: Abnormal Lab Results - Last 24 Hours (Table) 05/13/24 Range/Units 04:39 WBC 13.23 H (4.50-10.00) X 10*3/uL RBC 4.10 L (4.40-5.60) X 10*6/uL Hgb 12.4 L (13.0-17.0) g/dL Hct 37.7 L (39.6-50.0) % Neutrophils # 9.60 H (1.80-7.70) X 10*3/uL Monocytes # 1.36 H (0.20-1.00) X 10*3/uL Eosinophils # 0.03 L (0.04-0.35) X 10*3/uL Assessment and Plan Assessment: Postoperative day #1 status post direct anterior right total hip arthroplasty Plan: Pain control, continue current medications. Discontinuing the 1 mg of Dilaudid today, discontinuing the 0.5 mg Dilaudid tomorrow DVT prophylaxis, continue oral anticoagulant Encourage incentive spirometer Weight-bear as tolerated Monitor surgical dressing, ice the extremity for symptomatic relief Medical recommendations appreciated Discharge planning: Hopeful discharge to home with home health care in the next 24-48 hours
[2024-05-13] MEDS ORDERED: PANTOPRAZOLE 40 MG TABLET PO PRN (14:24)
--- NOTE | 2024-05-13 14:27 | P.PN ---
Subjective Progress Note Date: 05/13/24 53 year old M with PMH of GERD, HTN, Hypothyroid, thoracic aneurysm presents to [facility] for elective surgery. He underwent right total hip arthroplastyanterior approachpress-fit with Dr. Kirkland on 05/12. [facility] consulted for medical management of this patient. 05/13 Patient was seen and examined. Pain well controlled. Urinating freely. Passing gas, no bowel movement. CBC shows WBC 13.23, RBC 4.1, Hg 12.4, Hct 37. General: non toxic, moderate distress, appears at stated age Derm: warm, dry Head: atraumatic, normocephalic, symmetric Mouth: no lip lesion, mucus membranes moist Cardiovascular: Good distal perfusion in all 4 extremities Lungs: Breathing comfortably, no accessory muscle use Ext: no gross muscle atrophy, no edema, no contractures Neuro: no focal neuro deficits Psych: Alert and oriented. Based on my assessment of this patient, this patient meets a high complexity level of care. Acute blood loss anemia which is an expected result of surgery Leukocytosis which is likely reactive with no signs of active infection: Monitor fever profile. GERD: Prilosec 40 mg PO QD. HTN: Borderline low BP. Hold Losartan. Hypothyroid: Synthroid 200 mcg PO QD. Thoracic aortic aneurysm: Stable. Outpatient follow up. Medically stable. CODE STATUS: FULL CODE. DVT Prophylaxis: Xarelto GI Prophylaxis: Prilosec. Designated medical POA if patient is not able to make medical decisions for themselves: I have reviewed the following continuous improvement consultant notes: Orthopedic Sx I have reviewed the results of the following tests: CBC I have ordered the following tests: I have discussed the care of this patient with the following independent historian: RN. I have independently interpreted the following test below: I have discussed the management of this patient with the following physician: Objective - Vital Signs Vital signs: Vital Signs Temp 97.4 F L 05/13/24 01:30 Pulse 59 L 05/13/24 06:55 Resp 18 05/13/24 06:55 BP 107/65 05/13/24 06:55 Pulse Ox 98 05/13/24 06:55 FiO2 Intake & Output 05/12/24 05/13/24 05/13/24 18:59 06:59 18:59 Intake Total 1901 Output Total 50 3100 Balance 1851 -3100 Weight 104.7 kg Intake: IV 1901 Output: Urine 3100 Straight 700 Estimated Blood Loss 50 Other: Voiding Method Urinal Toilet # Voids 1 1 - Labs CBC & Chem 7: 05/13/24 04:39 Labs: Abnormal Lab Results - Last 24 Hours (Table) 05/13/24 Range/Units 04:39 WBC 13.23 H (4.50-10.00) X 10*3/uL RBC 4.10 L (4.40-5.60) X 10*6/uL Hgb 12.4 L (13.0-17.0) g/dL Hct 37.7 L (39.6-50.0) % Neutrophils # 9.60 H (1.80-7.70) X 10*3/uL Monocytes # 1.36 H (0.20-1.00) X 10*3/uL Eosinophils # 0.03 L (0.04-0.35) X 10*3/uL
[2024-05-13] MEDS: LACTULOSE 20 GM/30 ML CUP PO ONE (15:01)
[2024-05-14] MEDS ORDERED: NON FORMULARY DRUG (Levothyroxine Sodium [Synthroid] 150 MCG Tablet) PO SCH (09:00)
--- NOTE | 2024-05-14 10:42 | P.PN ---
Subjective Progress Note Date: 05/14/24 53 year old M with PMH of GERD, HTN, Hypothyroid, thoracic aneurysm presents to [facility] for elective surgery. He underwent right total hip arthroplastyanterior approachpress-fit with Dr. Kirkland on 05/12. [facility] consulted for medical management of this patient. 05/13 Patient was seen and examined. Pain well controlled. Urinating freely. Passing gas, no bowel movement. CBC shows WBC 13.23, RBC 4.1, Hg 12.4, Hct 37. 05/14 Patient was seen and examined. Reports moderate pain in his R hip with ambulation. General: non toxic, moderate distress, appears at stated age Derm: warm, dry Head: atraumatic, normocephalic, symmetric Mouth: no lip lesion, mucus membranes moist Cardiovascular: Good distal perfusion in all 4 extremities Lungs: Breathing comfortably, no accessory muscle use Ext: no gross muscle atrophy, no edema, no contractures Neuro: no focal neuro deficits Psych: Alert and oriented. Based on my assessment of this patient, this patient meets a high complexity level of care. Acute blood loss anemia which is an expected result of surgery Leukocytosis which is likely reactive with no signs of active infection: Monitor fever profile. GERD: Prilosec 40 mg PO QD. HTN: BP 100/63. Hold Losartan. Hypothyroid: Synthroid 200 mcg PO QD. Thoracic aortic aneurysm: Stable. Outpatient follow up. Medically stable. CODE STATUS: FULL CODE. DVT Prophylaxis: Xarelto GI Prophylaxis: Prilosec. Designated medical POA if patient is not able to make medical decisions for themselves: Dispo: Medically stable. I have reviewed the following functional consultant notes: Orthopedic Sx I have reviewed the results of the following tests: I have ordered the following tests: I have discussed the care of this patient with the following independent historian: RN. I have independently interpreted the following test below: I have discussed the management of this patient with the following physician: Objective - Vital Signs Vital signs: Vital Signs Temp 98.3 F 05/14/24 07:02 Pulse 74 05/14/24 07:02 Resp 18 05/14/24 07:02 BP 100/63 05/14/24 07:02 Pulse Ox 100 05/14/24 07:02 FiO2 Intake & Output 05/13/24 05/14/24 05/14/24 18:59 06:59 18:59 Output Total 900 Balance -900 Output: Urine 900 Other: Voiding Method Toilet Toilet Urinal # Voids 4 2 # Bowel Movements 0 1 - Labs CBC & Chem 7: 05/13/24 04:39
--- NOTE | 2024-05-14 12:21 | P.PN ---
Subjective Progress Note Date: 05/14/24 Principal diagnosis: Status post direct anterior right total hip arthroplasty Patient was examined today at bedside, he is up resting in his hospital chair. Patient notes worsening pain after ambulating on multiple occasions yesterday. Physical therapy is not around today to attempt stairs. He denies headaches, lightheadedness, chest pain or shortness of breath Objective - Vital Signs Vital signs: Vital Signs Temp 98.3 F 05/14/24 07:02 Pulse 74 05/14/24 07:02 Resp 18 05/14/24 07:02 BP 100/63 05/14/24 07:02 Pulse Ox 100 05/14/24 07:02 FiO2 Intake & Output 05/13/24 05/14/24 05/14/24 18:59 06:59 18:59 Output Total 900 Balance -900 Output: Urine 900 Other: Voiding Method Toilet Toilet Urinal # Voids 4 2 # Bowel Movements 0 1 - Exam Right lower extremity: Incision is clean, dry, and intact. The exofin fusion tape is in good condition. There is minimal soft tissue swelling and ecchymosis surrounding the medial and lateral aspects of the incision. Calf is soft, no tenderness with palpation. Plantar flexion, dorsiflexion, EHL, FHL are intact. Sensory exam to light touch throughout the extremity is intact, dorsal pedis pulses 2+. - Labs CBC & Chem 7: 05/13/24 04:39 Assessment and Plan Assessment: Postoperative day #2 status post direct anterior right total hip arthroplasty Plan: Pain control, will continue to adjust medications DVT prophylaxis, continue oral anticoagulant Encourage incentive spirometer Weight-bear as tolerated Monitor surgical dressing, ice the extremity for symptomatic relief Medical recommendations appreciated Discharge planning: Hopeful discharge to home with home health care in the next 24 hours Time with Patient: Less than 30
[2024-05-14] MEDS: LACTULOSE 20 GM/30 ML CUP PO PRN (13:38)
--- NOTE | 2024-05-14 18:25 | P.ANPRN ---
Procedure Note - Anesthesia - Nerve Block Performed Right Mehul Single Time Out Performed: Yes Date of Procedure: 05/12/24 Procedure Start Time: Procedure Stop Time: Location of Patient: PreOp Indication: Acute Post-Operative Pain, Requested by Surgeon Sedation Type: Sedate with meaningful contact maintained Preparation: Sterile Prep Position: Supine Needle Types: Pajunk Needle Gauge: 21 Ultrasound used to visualize needle placement: Yes Ultrasound used to observe medication spread: Yes Blood Aspirated: No Pain Paresthesia on Injection Noted: No Resistance on Injection: Normal Image Stored and Saved: Yes Events: Uneventful and Well Tolerated (Ropivacaine 0.5% 20 cc plus dexamethasone 4 mg)
[2024-05-15] MEDS: hydrOXYzine pamoate 25 MG CAP PO PRN (05:44)
[2024-05-15 08:36] LABS: Basophils # (A) 0.05 X 10*3/uL (0.00-0.10); Basophils % (A) 0.5 %; Eosinophils # (A) 0.18 X 10*3/uL (0.04-0.35); Eosinophils % (A) 1.9 %; HCT 36.6 % (39.6-50.0); HGB 12.2 g/dL (13.0-17.0); Lymphocytes # (A) 2.69 X 10*3/uL (0.90-5.00); Lymphocytes % (A) 28.3 %; MCHC 33.3 g/dL (32.0-37.0); MCV 92.9 FL (80.0-97.0); Monocytes # (A) 1.22 X 10*3/uL (0.20-1.00); Monocytes % (A) 12.9 %; NRBC Per 100 WBC 0 X 10*3/uL (0.00-0.01); Neutrophils # (A) 5.32 X 10*3/uL (1.80-7.70); Neutrophils % (A) 56.1 %; Platelet Count 199 X 10*3/uL (140-440); RBC 3.94 X 10*6/uL (4.40-5.60); RDW 13.2 % (11.5-14.5); WBC 9.49 X 10*3/uL (4.50-10.00)
[2024-05-15 09:57] VITALS: BP 115/75; PULSE 68; RESP 17; TEMP 98.2
--- NOTE | 2024-05-15 12:11 | P.PN ---
Subjective Progress Note Date: 05/15/24 Principal diagnosis: Status post direct anterior right total hip arthroplasty Patient was examined today at bedside, he is up resting in his hospital chair. Patient is continue to improve with his ambulation and pain control. He denies headaches, lightheadedness, chest pain or shortness of breath Objective - Vital Signs Vital signs: Vital Signs Temp 98.2 F 05/15/24 07:05 Pulse 68 05/15/24 07:05 Resp 17 05/15/24 07:05 BP 115/75 05/15/24 07:05 Pulse Ox 97 05/15/24 07:05 FiO2 Intake & Output 05/14/24 05/15/24 05/15/24 18:59 06:59 18:59 Output Total 900 275 Balance -900 -275 Output: Urine 900 275 Other: Voiding Method Urinal Toilet Urinal Urinal - Exam Right lower extremity: Incision is clean, dry, and intact. The exofin fusion tape is in good condition. There is minimal soft tissue swelling and ecchymosis surrounding the medial and lateral aspects of the incision. Calf is soft, no tenderness with palpation. Plantar flexion, dorsiflexion, EHL, FHL are intact. Sensory exam to light touch throughout the extremity is intact, dorsal pedis pulses 2+. - Labs CBC & Chem 7: 05/15/24 02:28 Labs: Abnormal Lab Results - Last 24 Hours (Table) 05/15/24 Range/Units 02:28 RBC 3.94 L (4.40-5.60) X 10*6/uL Hgb 12.2 L (13.0-17.0) g/dL Hct 36.6 L (39.6-50.0) % Monocytes # 1.22 H (0.20-1.00) X 10*3/uL Assessment and Plan Assessment: Postoperative day #3 status post direct anterior right total hip arthroplasty Plan: Pain control, plan for discharge home on [place] 7.5 mg / 325 mg DVT prophylaxis, Eliquis 2.5 mg twice a day for 30 days Encourage incentive spirometer Weight-bear as tolerated Monitor surgical dressing, ice the extremity for symptomatic relief Medical recommendations appreciated Discharge planning: stable for discharge home today Time with Patient: Less than 30
--- NOTE | 2024-05-15 12:16 | P.DS ---
Providers Date of admission: 05/12/2024 Expected date of discharge: 05/15/24 Attending physician: Aleksandar Kirkland Consults: 05/12/24 10:55 Consult Physician Routine Consulting Provider: Brea Crawford Consult Reason/Comments: Medical Management s/p direct anterior right total hip arthroplasty Do you want consulting provider notified?: Yes Primary care physician: Calvin Mendosa Hospital Course: Date of admission: 05/12/2024 Date of discharge: 05/15/2024 Admission diagnosis: Status post direct anterior right total hip arthroplasty Discharge diagnosis: Same Attending physician: Dr. Kirkland Surgical procedures: Direct anterior right total hip arthroplasty Brief history: Patient is a 53-year-old male with a history of progressive primary right hip osteoarthritis. At this point patient has failed conservative treatment measures and has opted to proceed with a elective direct anterior right total hip arthroplasty. Hospital course: Details of patient's surgery can be found in operative report. Patient tolerated the procedure well and was subsequently transported to orthopedic floor. Patient's orthopeidc and medical care was provided daily. Patient had daily laboratory tests performed for evaluation of overall blood counts. Patient had daily physical therapy to include strengthening range of motion as well as education with walker ambulation. Patient was treated with Xarelto for their postoperative DVT prophylaxis during their inpatient stay. Patient was noted to have a relatively uneventful postoperative course. Patient reported satisfactory pain control with oral pain medications by postoperative day 2. Patient showed satisfactory progress with physical therapy. Patient moved steadily through the program and had no difficulty meeting the goals by postoperative day 3. Given patient's otherwise satisfactory course and having met physical therapy goals, plan is to discharge patient home on postoperative day 3. Discharge condition/disposition: Patient will be discharged home in stable condition. Discharge medications: Instructions are given on resumption of patient's normal daily medications per primary care recommendation, in addition patient will be prescribed [place] 7.5 mg / 325 mg, senna S, Eliquis 2.5 mg. Discharge instructions: 1. Wound care and infection precautions, keep incision dry and covered while showering, no lotions, creams, moisturizers. No soaking, tubs, pools, hottubs. Do not scrub over the incision. 2. Weight-bear as tolerated with walker / cane until follow-up. 3. Ice and elevate when necessary. Do not exceed 20 minutes per hour with ice pack. 4. Utilize compression sleeve until seen at first follow up appointment. 5. Visiting nursing care. 6. Home physical therapy. 7. Pain meds and anticoagulants per prescription. 8. Pain medication has potential to cause constipation. Increase oral fluid and fiber intake. Contact primary care provider if you have not had a bowel movement within 48 hours after discharge 9. No anti-inflammatory medication until discussed at first post operative visit, this including Motrin, Aleve, Mobic, Diclofenac. 10. Follow up in office at 2 weeks postop with Sushant Valdes PA-C/[facility] 11. Follow up with your primary care doctor 7-10 days after discharge. 12. Contact [facility] with any questions, . Procedures: Direct anterior right total hip arthroplasty Patient Condition at Discharge: Good Plan - Discharge Summary Discharge Rx Participant: No New Discharge Prescriptions: New Sennosides/Docusate Sodium [Senna-S 8.6-50 mg Tablet] 2 each PO DAILY PRN #30 tablet PRN Reason: Constipation Apixaban [Eliquis] 2.5 mg PO BID #60 tab HYDROcodone/APAP 7.5-325MG [[place] 7.5] 1 each PO Q6HR PRN #28 tab PRN Reason: Pain No Action Levothyroxine Sodium [Synthroid] 200 mcg PO DAILY Fluticasone Nasal [place] [Flonase Nasal [place]] 2 spray EA NOSTRIL DAILY Albuterol Inhaler [Ventolin Hfa Inhaler] 1 - 2 puff INHALATION Q6H PRN PRN Reason: Shortness Of Breath Losartan [Cozaar] 25 mg PO DAILY Omeprazole 40 mg PO DAILY PRN PRN Reason: Heartburn Cholecalciferol [Vitamin D3 (125 Mcg = 5000 Iu)] 125 mcg PO DAILY L.acidoph,Paracasei, B.lactis [Probiotic] 1 each PO DAILY K2/Mk7 1 tab PO DAILY Glucosa Nicole 2Kcl/Chondroitin Nicole [Glucosamine-Chondroitin Cap] 1 each PO DAILY Arginine [l-Arginine] 500 mg PO DAILY Aspirin 81 mg PO DAILY Acyclovir [Zovirax] 800 mg PO BID Ibuprofen [Motrin] 600 mg PO Q6HR PRN PRN Reason: Pain Ascorbic Acid [Vitamin C] 500 mg PO DAILY Ubidecarenone [Co Q-10] 100 mg PO DAILY Discharge Medication List Levothyroxine Sodium [Synthroid] 200 mcg PO DAILY 08/27/17 [History] Albuterol Inhaler [Ventolin Hfa Inhaler] 1 - 2 puff INHALATION Q6H PRN 03/30/24 [History] Fluticasone Nasal [place] [Flonase Nasal [place]] 2 spray EA NOSTRIL DAILY 03/30/24 [History] Losartan [Cozaar] 25 mg PO DAILY 03/30/24 [History] Omeprazole 40 mg PO DAILY PRN 03/30/24 [History] Arginine [l-Arginine] 500 mg PO DAILY 03/31/24 [History] Ascorbic Acid [Vitamin C] 500 mg PO DAILY 03/31/24 [History] Cholecalciferol [Vitamin D3 (125 Mcg = 5000 Iu)] 125 mcg PO DAILY 03/31/24 [History] Glucosa Nicole 2Kcl/Chondroitin Nicole [Glucosamine-Chondroitin Cap] 1 each PO DAILY 03/31/24 [History] Ibuprofen [Motrin] 600 mg PO Q6HR PRN 03/31/24 [History] K2/Mk7 1 tab PO DAILY 03/31/24 [History] L.acidoph,Paracasei, B.lactis [Probiotic] 1 each PO DAILY 03/31/24 [History] Ubidecarenone [Co Q-10] 100 mg PO DAILY 03/31/24 [History] Acyclovir [Zovirax] 800 mg PO BID 05/09/24 [History] Aspirin 81 mg PO DAILY 05/09/24 [History] Apixaban [Eliquis] 2.5 mg PO BID #60 tab 05/15/24 [Rx] HYDROcodone/APAP 7.5-325MG [[place] 7.5] 1 each PO Q6HR PRN #28 tab 05/15/24 [Rx] Sennosides/Docusate Sodium [Senna-S 8.6-50 mg Tablet] 2 each PO DAILY PRN #30 tablet 05/15/24 [Rx] Follow up Appointment(s)/Referral(s): Rvier Gomez PAC [PHYSICIAN INPATIENT CODER] - 2 Weeks [facility], [NON-STAFF] - 1-2 Days ([facility] will call you to schedule your in home nursing and physical therapy visits. ) Patient Instructions/Handouts: Anterior Hip Replacement (GEN) Activity/Diet/Wound Care/Special Instructions: Orthopedic Discharge Instructions: 1. Wound care and infection precautions, keep incision dry and covered while showering, no lotions, creams, moisturizers. No soaking, pools, hot tubs. Do not scrub over incision. 2. Weight-bear as tolerated with walker / cane until follow-up. 3. Ice and elevate when necessary. Do not exceed 20 minutes per hour with ice pack. 4. Utilize compression sleeve until seen at first follow up appointment. 5. Pain meds and anticoagulants per prescription. 6. Pain medication has potential to cause constipation. Increase oral fluid and fiber intake. Contact primary care provider if you have not had a bowel movement within 48 hours after discharge. 7. No anti-inflammatory medication until discussed at first post operative visit, this including Motrin, Aleve, Mobic, Diclofenac. 8. Follow up in office at 2 weeks postop with Sushant Valdes PA-C / River Gomez PA-C 9. Follow up with your primary care doctor 7-10 days after discharge. 10. Contact [facility] with any questions, . Keep incision clean, dry, intact. While showering, cover fusion tape with Saran wrap. Keep fusion tape on until follow-up appointment office in 2 weeks. Discharge Disposition: HOME WITH HOME HEALTH SERVICES
--- NOTE | 2024-05-15 14:59 | P.PN ---
Subjective Progress Note Date: 05/15/24 53 year old M with PMH of GERD, HTN, Hypothyroid, thoracic aneurysm presents to [facility] for elective surgery. He underwent right total hip arthroplastyanterior approachpress-fit with Dr. Kirkland on 05/12. [facility] consulted for medical management of this patient. 05/13 Patient was seen and examined. Pain well controlled. Urinating freely. Passing gas, no bowel movement. CBC shows WBC 13.23, RBC 4.1, Hg 12.4, Hct 37. 05/14 Patient was seen and examined. Reports moderate pain in his R hip with ambulation. 05/15; patient feels he is ready for discharge, his vitals are stable blood work from this morning showed resolved leukocytosis and stable anemia General: non toxic, moderate distress, appears at stated age Derm: warm, dry Head: atraumatic, normocephalic, symmetric Mouth: no lip lesion, mucus membranes moist Cardiovascular: Good distal perfusion in all 4 extremities Lungs: Breathing comfortably, no accessory muscle use Ext: no gross muscle atrophy, no edema, no contractures Neuro: no focal neuro deficits Psych: Alert and oriented. Acute blood loss anemia which is an expected result of surgery Leukocytosis which is likely reactive with no signs of active infection: Monitor fever profile. GERD: Prilosec 40 mg PO QD. HTN: BP 100/63. Hold Losartan. Hypothyroid: Synthroid 200 mcg PO QD. Thoracic aortic aneurysm: Stable. Outpatient follow up. Medically stable. CODE STATUS: FULL CODE. DVT Prophylaxis: Xarelto GI Prophylaxis: Prilosec. Designated medical POA if patient is not able to make medical decisions for themselves: Dispo: Medically stable. Objective - Vital Signs Vital signs: Vital Signs Temp 98.2 F 05/15/24 07:05 Pulse 68 05/15/24 07:05 Resp 17 05/15/24 07:05 BP 115/75 05/15/24 07:05 Pulse Ox 97 05/15/24 07:05 FiO2 Intake & Output 05/14/24 05/15/24 05/15/24 18:59 06:59 18:59 Output Total 900 275 Balance -900 -275 Output: Urine 900 275 Other: Voiding Method Urinal Toilet Urinal Urinal - Labs CBC & Chem 7: 05/15/24 02:28 Labs: Abnormal Lab Results - Last 24 Hours (Table) 05/15/24 Range/Units 02:28 RBC 3.94 L (4.40-5.60) X 10*6/uL Hgb 12.2 L (13.0-17.0) g/dL Hct 36.6 L (39.6-50.0) % Monocytes # 1.22 H (0.20-1.00) X 10*3/uL
== END 2024-05-15 13:51 | disposition home health service (06) ==
LOC: OR 06:37 → 4SSUR 10:41 → OR 05-15 13:51
PROVIDERS: ATTEND Orthopaedic Surgery
DX: M16.11 Unilateral primary osteoarthritis, right hip (principal); G89.18 Other acute postprocedural pain; G47.33 Obstructive sleep apnea (adult) (pediatric); E03.9 Hypothyroidism, unspecified; Z79.82 Long term (current) use of aspirin; Z79.890 Hormone replacement therapy; F17.210 Nicotine dependence, cigarettes, uncomplicated; I71.20 Thoracic aortic aneurysm, without rupture, unspecified; Z79.01 Long term (current) use of anticoagulants; Z96.641 Presence of right artificial hip joint
CPT/HCPCS: 97116 ×2; 97530; 97162; 97166; 64473; 85025 ×2; 85610; 73501; 27130; C1776; J2250; J1100; J0690 ×3; J2405; J1171 ×4